=== PATIENT | female | born 1990 | race African-American/Black ===

== ENCOUNTER 2022-06-04 01:53 | Emergency (ER) | payer MEDICAID, OTHER ==
[~2022-06-04] VITALS: Ht 157.5 cm; Wt 45.4 kg
--- NOTE | 2022-06-04 02:30 | NUR ---
PT REFUSED BLOOD DRAW. MADE AWARE
[2022-06-04 02:40] VITALS: BP 107/72
[2022-06-04] MEDS ORDERED: OLANZAPINE 5 MG TABLET PO ONE (03:00)
[2022-06-04] MEDS ORDERED: OLANZAPINE 5 MG TABLET ONE (03:01)
== END 2022-06-04 04:39 | disposition home or self-care (01) ==
LOC: ER 01:56
DX: F41.9 Anxiety disorder, unspecified (principal)